=== PATIENT | female | born 1965 | race Two or more races ===

== ENCOUNTER 2016-12-29 10:39 | Outpatient (CLI) | payer MEDICAID, OTHER | END 2016-12-29 10:40 | disposition home or self-care (01) | DX: R60.9 Edema, unspecified (principal); I10 Essential (primary) hypertension; E66.9 Obesity, unspecified ==

== ENCOUNTER 2017-02-08 16:19 | Outpatient (CLI) | payer MEDICAID | END 2017-02-08 16:20 | disposition home or self-care (01) | DX: I10 Essential (primary) hypertension (principal) ==

== ENCOUNTER 2017-12-02 11:21 | Outpatient (CLI) | payer MEDICAID ==
[2017-12-02 19:24] LABS: CALCIUM 9.6 mg/dL (8.5-10.3); CREATININE 0.8 mg/dL (0.4-1.0)
== END 2017-12-02 11:22 | disposition home or self-care (01) ==
LOC: LAB.WCP 11:21
PROVIDERS: ATTEND Family Medicine
DX: R60.9 Edema, unspecified (principal)
CPT/HCPCS: 36415; 80048

== ENCOUNTER 2017-12-10 08:00 | Outpatient (CLI) | payer MEDICAID | END 2017-12-10 08:01 | disposition home or self-care (01) | LOC: LAB.WCP 08:00 | PROVIDERS: ATTEND Family Medicine | DX: E87.6 Hypokalemia (principal) | CPT/HCPCS: 36415; 84132 ==

== ENCOUNTER 2019-07-27 13:54 | Outpatient (CLI) | payer BC, MEDICAID ==
[2019-07-27 19:20] LABS: ALBUMIN 3.8 g/dL (3.2-5.5); ALBUMIN/GLOBULIN RATIO 1.1 (1.0-2.2); ALKALINE PHOSPHATASE 77 IU/L (42-121); ALT ALANINE AMINOTRANSFERASE 23 IU/L (10-60); AST ASPARTATE AMINOTRANSFERASE 20 IU/L (10-42); BILIRUBIN,TOTAL 0.4 mg/dL (0.2-1.0); BUN - BLOOD UREA NITROGEN 18 mg/dL (6-20); CALCIUM 9.1 mg/dL (8.5-10.3); CARBON DIOXIDE - CO2 28 mmol/L (21-32); CHLORIDE 102 mmol/L (101-111); CHOL/HDL RATIO 3.7 (<4.4); CHOLESTEROL 182 mg/dL; CREATININE 0.7 mg/dL (0.4-1.0); GFR - MDRD 88 (>89); GLUCOSE 96 mg/dL (70-100); HDL CHOLESTEROL 49 mg/dL; LDL CHOLESTEROL,CALCULATED 103 mg/dL; LDL/HDL RATIO 2.1 (<4.4); SODIUM 140 mmol/L (135-145); TOTAL PROTEIN 7.3 g/dL (6.7-8.2); VLDL CHOLESTEROL 30 mg/dL
[2019-07-27 19:38] LABS: HB2 TOTAL 15.5 g/dL; HEMOGLOBIN A1C 0.73 g/dL; HEMOGLOBIN A1C % 6.5 % (4.6-6.2)
== END 2019-07-27 23:59 | disposition home or self-care (01) ==
LOC: LAB.WCP 13:54
PROVIDERS: ATTEND Family Medicine
DX: E11.9 Type 2 diabetes mellitus without complications (principal); E66.01 Morbid (severe) obesity due to excess calories; I10 Essential (primary) hypertension
CPT/HCPCS: 36415; 80053; 80061; 83036; 83721; 84443

== ENCOUNTER 2021-11-18 08:04 | Outpatient (CLI) | payer OTHER ==
[2021-11-18 11:49] LABS: BASOPHILS # (AUTO) 0.1 10^3/uL (0.0-0.1); BASOPHILS % (AUTO) 0.5 %; EOSINOPHILS # (AUTO) 0.3 10^3/uL (0.0-0.7); EOSINOPHILS % (AUTO) 3.2 %; HCT - HEMATOCRIT 47.8 % (37.0-47.0); HGB - HEMOGLOBIN 15.4 g/dL (12.0-16.0); LYMPHOCYTES # (AUTO) 2.2 10^3/uL (1.5-3.5); LYMPHOCYTES % (AUTO) 22.7 %; MEAN CORPUSCULAR HEMOGLOBIN 28.4 pg (27.0-31.0); MEAN CORPUSCULAR HGB CONC 32.2 g/dL (32.0-36.0); MEAN CORPUSCULAR VOLUME 88.2 fL (81.0-99.0); MEAN PLATELET VOLUME 10.4 fL (7.9-10.8); MONOCYTES # (AUTO) 0.7 10^3/uL (0.0-1.0); MONOCYTES % (AUTO) 7.5 %; NEUTROPHILS # (AUTO) 6.2 10^3/uL (1.5-6.6); NEUTROPHILS % (AUTO) 65.7 %; PLT - PLATELET COUNT 335 10^3/uL (130-450); RED BLOOD COUNT 5.42 10^6/uL (4.20-5.40); RED CELL DISTRIBUTION WIDTH 15.6 % (12.0-15.0); WHITE BLOOD COUNT 9.5 x10^3/uL (4.8-10.8)
[2021-11-18 12:08] LABS: ALBUMIN 3.7 g/dL (3.2-5.5); ALBUMIN/GLOBULIN RATIO 0.9 (1.0-2.2); BILIRUBIN,TOTAL 0.4 mg/dL (0.2-1.0); CALCIUM 9.5 mg/dL (8.5-10.3); CREATININE 0.6 mg/dL (0.4-1.0); POTASSIUM 4.3 mmol/L (3.5-5.0); TOTAL PROTEIN 7.6 g/dL (6.7-8.2)
[2021-11-18 12:27] LABS: THYROID STIMULATING HORMONE 2.64 uIU/mL (0.34-5.60)
== END 2021-11-18 08:05 | disposition home or self-care (01) ==
LOC: LAB.N 08:04
PROVIDERS: ATTEND Nurse Practitioner
DX: I10 Essential (primary) hypertension (principal)
CPT/HCPCS: 36415; 80053; 83880; 84443; 85025

== ENCOUNTER 2023-04-21 07:11 | Outpatient (CLI) | payer BC ==
[2023-04-21 12:07] LABS: BASOPHILS # (AUTO) 0.1 10^3/uL (0.0-0.1); BASOPHILS % (AUTO) 0.7 %; EOSINOPHILS # (AUTO) 0.5 10^3/uL (0.0-0.7); EOSINOPHILS % (AUTO) 5.6 %; HCT - HEMATOCRIT 48.4 % (37.0-47.0); HGB - HEMOGLOBIN 14.9 g/dL (12.0-16.0); LYMPHOCYTES % (AUTO) 21.9 %; MEAN CORPUSCULAR HEMOGLOBIN 27.2 pg (27.0-31.0); MEAN CORPUSCULAR HGB CONC 30.8 g/dL (32.0-36.0); MEAN CORPUSCULAR VOLUME 88.5 fL (81.0-99.0); MEAN PLATELET VOLUME 10.7 fL (7.9-10.8); MONOCYTES # (AUTO) 0.7 10^3/uL (0.0-1.0); MONOCYTES % (AUTO) 7.6 %; NEUTROPHILS # (AUTO) 5.7 10^3/uL (1.5-6.6); PLT - PLATELET COUNT 324 10^3/uL (130-450); RED BLOOD COUNT 5.47 10^6/uL (4.20-5.40); RED CELL DISTRIBUTION WIDTH 15.8 % (12.0-15.0); WHITE BLOOD COUNT 8.9 x10^3/uL (4.8-10.8)
[2023-04-21 12:36] LABS: FREE T3 3.06 pg/mL (2.5-3.9)
[2023-04-21 12:37] LABS: THYROID STIMULATING HORMONE 1.87 uIU/mL (0.34-5.60)
[2023-04-21 12:38] LABS: FREE T4 (FREE THYROXINE) 0.95 ng/dL (0.58-1.64)
[2023-04-21 12:42] LABS: FERRITIN 44.6 ng/mL (11.0-306.8)
[2023-04-21 12:44] LABS: % IRON SATURATION 14 % (20-50); ALBUMIN 3.5 g/dL (3.2-5.5); ALBUMIN/GLOBULIN RATIO 0.8 (1.0-2.2); ALKALINE PHOSPHATASE 93 IU/L (42-121); ALT ALANINE AMINOTRANSFERASE 27 IU/L (10-60); AST ASPARTATE AMINOTRANSFERASE 18 IU/L (10-42); BILIRUBIN,TOTAL 0.3 mg/dL (0.2-1.0); BUN - BLOOD UREA NITROGEN 13 mg/dL (6-20); CALCIUM 9.1 mg/dL (8.5-10.3); CARBON DIOXIDE - CO2 28 mmol/L (21-32); CHLORIDE 106 mmol/L (101-111); CHOL/HDL RATIO 3.4 (<4.4); CHOLESTEROL 193 mg/dL; CREATININE 0.7 mg/dL (0.4-1.0); GFR - MDRD 86 (>89); GLUCOSE 159 mg/dL (70-100); HDL CHOLESTEROL 57 mg/dL; IRON 52 ug/dL (28-170); LDL CHOLESTEROL,CALCULATED 118 mg/dL; LDL/HDL RATIO 2.1 (<4.4); POTASSIUM 4.2 mmol/L (3.5-5.0); SODIUM 140 mmol/L (135-145); TOTAL IRON BINDING CAPACITY 372 ug/dL (250-450); TOTAL PROTEIN 7.7 g/dL (6.7-8.2); TRANSFERRIN 266 mg/dL (192-382); TRIGLYCERIDES 92 mg/dL; VLDL CHOLESTEROL 18 mg/dL
[2023-04-21 12:46] LABS: ESTIMATED AVERAGE GLUCOSE 166 mg/dL (70-100); HEMOGLOBIN A1c% 7.4 % (4.27-6.07)
== END 2023-04-21 07:12 | disposition home or self-care (01) ==
LOC: LAB.N 07:11
PROVIDERS: ATTEND Physician Assistant
DX: E11.9 Type 2 diabetes mellitus without complications (principal); E66.01 Morbid (severe) obesity due to excess calories; Z13.9 Encounter for screening, unspecified
CPT/HCPCS: 36415; 80053; 80061; 82728; 83036; 83540; 83721; 84439; 84443; 84466; 84481; 85025

== ENCOUNTER 2023-09-30 07:18 | Outpatient (CLI) | payer BC ==
[2023-09-30 12:08] LABS: ESTIMATED AVERAGE GLUCOSE 131 mg/dL (70-100); HEMOGLOBIN A1c% 6.2 % (4.27-6.07)
[2023-09-30 12:10] LABS: ALBUMIN/GLOBULIN RATIO 1.1 (1.0-2.2); BILIRUBIN,TOTAL 0.3 mg/dL (0.2-1.0); CALCIUM 9.5 mg/dL (8.5-10.3); CREATININE 0.5 mg/dL (0.6-1.3); POTASSIUM 4.3 mmol/L (3.5-4.5); TOTAL PROTEIN 7.5 g/dL (6.4-8.9)
[2023-09-30 12:29] LABS: CREATININE,URINE 176.2 mg/dL; MICROALBUM/CREATININE RATIO,UR 31.8 ug/mg (<30.0); MICROALBUMIN,URINE 5.6 mg/dL
== END 2023-09-30 07:19 | disposition home or self-care (01) ==
LOC: LAB.N 07:18
PROVIDERS: ATTEND Physician Assistant
DX: E11.9 Type 2 diabetes mellitus without complications (principal)
CPT/HCPCS: 36415; 80053; 82043; 82570; 83036